=== PATIENT | female | born 1945 | race Caucasian/White ===

== ENCOUNTER → 2016-12-10 | Outpatient (CLI) | payer MEDICARE | END | disposition home or self-care (01) | LOC: GMAB 15:25 | PROVIDERS: ATTEND Family Medicine | DX: D50.9 Iron deficiency anemia, unspecified (principal) ==

== ENCOUNTER → 2017-02-26 | Outpatient (CLI) | payer MEDICARE ==
--- NOTE | 2017-02-27 12:36 | RAD ---
History: Shortness of breath. Chest x-ray: PA and lateral views are compared with 10/2016 study. Cardiac silhouette is within normal limits. Minimal left lower lung atelectasis or scarring. Questioned nodular density right lower lung more likely represents a confluence of overlapping structures. No abnormality is seen on lateral view. No pleural effusion. Diffuse osteopenia with deformity lower thoracic spine that appears remote. IMPRESSION: Minimal left lower lung atelectasis or scarring with suspected patchy density on the right from overlapping structures. Follow-up chest x-ray to confirm this impression is recommended. Electronically signed by: Kiki Watters MD 02/27/2017 12:36 PM CDT
== END ==
LOC: LAB.O 14:55
PROVIDERS: ATTEND Internal Medicine Interventional Cardiology
DX: R06.02 Shortness of breath (principal); E78.2 Mixed hyperlipidemia

== ENCOUNTER → 2017-03-13 | Outpatient (CLI) | payer MEDICARE ==
--- NOTE | 2017-03-13 23:25 | US ---
Procedure: US CAROTID DOPPLER BILATERAL Exam Date: 03/13/2017 Ordering Provider: JUAN RIVERS Clinical Indication: STENOSIS Comparison: 02/04/2014 TECHNIQUE : Real-time cerebrovascular ultrasonography was obtained from sternal notch to the angle of the mandible bilaterally utilizing griggs scale, color flow and spectral Doppler analysis. Systolic velocity ratios were calculated for internal carotid artery to common carotid artery bilaterally. FINDINGS: RIGHT CAROTID BIFURCATION: Mild atherosclerotic plaque. Peak systolic and end-diastolic velocities in the right internal carotid artery are 103 and 21 cm/s. Internal carotid/common carotid ratio is 1.2. Right vertebral flow is antegrade. LEFT CAROTID BIFURCATION: Mild atherosclerotic plaque. Peak systolic and end-diastolic velocities in the left internal carotid artery are 126 and 19 cm/s. Internal carotid/common carotid ratio is 1.3. Left vertebral flow is antegrade. IMPRESSION: 1. Mild atherosclerotic plaque in each carotid bulb and ICA origin. 2. There is no significant stenosis (less than 50%) at either ICA origin. 3. Bilateral antegrade vertebral artery flow. Electronically signed by: Kulidp Gordon MD 03/13/2017 11:25 PM CDT
== END | disposition home or self-care (01) ==
LOC: US 09:55
PROVIDERS: ATTEND Family Medicine
DX: I65.23 Occlusion and stenosis of bilateral carotid arteries (principal)

== ENCOUNTER → 2017-04-04 | Outpatient (CLI) | payer MEDICARE ==
--- NOTE | 2017-04-04 13:29 | MRI ---
Procedure: MR BRAIN WITHOUT IV CONTRAST Exam Date: 04/04/2017 12:00 AM CDT Ordering Provider: JUAN RIVERS Clinical Indication: BENIGN PAROXYMAL VERTIGO Comparison: None Technique: Multiplanar, multisequence images of the brain were obtained without administration of intravenous gadolinium based contrast. Findings: No evidence of diffusion restriction to suggest acute infarct. Scattered areas of T2/Flair signal elevation are seen involving the periventricular and subcortical white matter likely herbicide service sales representative of small vessel occlusive disease. Mild global parenchymal volume loss is present. Ventricles are normal in size morphology without midline shift or mass effect. Basal cisterns are patent. Expected arterial flow-voids are present. There is no extra-axial fluid collection. No acute or chronic intracranial hemorrhage is seen. No evidence of cerebellar tonsillar herniation. Sellar/suprasellar structures are intact. The cervicomedullary junction is within normal limits. Impression: 1. No acute intracranial abnormality. No acute infarction. 2. Mild microvascular ischemic changes.. Electronically signed by: Los Souza MD 04/04/2017 1:28 PM CDT
== END | disposition home or self-care (01) ==
LOC: MRI 10:55
PROVIDERS: ATTEND Family Medicine
DX: H81.10 Benign paroxysmal vertigo, unspecified ear (principal)

== ENCOUNTER → 2017-04-05 | Outpatient (CLI) | payer MEDICARE | END | disposition home or self-care (01) | LOC: GMAB 13:05 | PROVIDERS: ATTEND Family Medicine | DX: D64.9 Anemia, unspecified (principal) ==

== ENCOUNTER → 2017-05-09 | Outpatient (CLI) | payer MEDICARE | END | disposition home or self-care (01) | LOC: GMAB 16:40 | PROVIDERS: ATTEND Family Medicine | DX: R60.0 Localized edema (principal); R06.02 Shortness of breath ==

== ENCOUNTER → 2017-08-14 | Outpatient (CLI) | payer MEDICARE | END | disposition home or self-care (01) | LOC: GMAB 16:55 | PROVIDERS: ATTEND Family Medicine | DX: E03.9 Hypothyroidism, unspecified (principal); M06.9 Rheumatoid arthritis, unspecified ==

== ENCOUNTER → 2017-10-07 | Outpatient (CLI) | payer MEDICARE ==
--- NOTE | 2017-10-09 13:17 | MAM ---
EXAM DESCRIPTION: 3D Screening BILATERAL : Digital Mammography. CLINICAL HISTORY: 71 years Female SCREENING . No complaints. Remote family history of breast cancer. Postmenopausal. No HRT. COMPARISON: 2-D digital screening bilateral study on March 05, 2012. No prior reports available. TECHNIQUE: Bilateral CC and MLO projection full-field images, 3-D tomosynthesis digital mammographic technique. Also bilateral synthesized CC/ MLO full-field images. CAD not utilized. FINDINGS: The breast parenchymal density pattern is: Heterogeneously dense breast tissue, which may obscure small masses. No skin thickening or nipple retraction bilateral axillary lymph nodes. Bilateral solitary microcalcifications have increased in number since the prior study. No focal, stellate mass or density, focal asymmetry , and no suspicious microcalcifications bilaterally. Stable mammograms compared to prior study, taking into account differences in mammographic technique IMPRESSION: BI-RADS CATEGORY: 2 - BENIGN FINDINGS. FOLLOW UP: Routine digital bilateral screening, one year interval from October 2017. Written communication explaining the IMPRESSION and follow-up, will be mailed to the patient and referring health care provider. According to the [employer], yearly mammograms are recommended starting at age 40 and continuing as long as a woman is in good health. Any breast change noted on a breast self-exam should be reported promptly to the patient's healthcare provider. Breast MRI is recommended for women with an approximately 20-25% or greater lifetime risk of breast cancer, including women with a strong family history of breast or ovarian cancer and women who have been treated for Hodgkin's disease. A negative mammographic report should not delay tissue diagnosis in patients with significant clinical history or physical findings. Extremely dense breast tissue limits the sensitivity of digital mammography. Electronically signed by: Capo Machado MD 10/09/2017 1:16 PM [facility]
== END ==
LOC: MAMMO 10:40
PROVIDERS: ATTEND Family Medicine
DX: Z12.31 Encounter for screening mammogram for malignant neoplasm of breast (principal); E53.8 Deficiency of other specified B group vitamins; D50.9 Iron deficiency anemia, unspecified; D64.9 Anemia, unspecified
CPT/HCPCS: 77063; 82728; 83540; 83550; G0202

== ENCOUNTER 2017-10-18 12:34 | Emergency (ER) | payer MEDICARE ==
--- NOTE | 2017-10-18 12:53 | ED.PDOC ---
History of Present Illness - General Chief Complaint: Respiratory Problem Stated Complaint: shortness of breath Time Seen by Provider: 10/18/17 12:52 Source: patient Exam Limitations: no limitations - History of Present Illness Comments: Maggy Bird 71 y/o female stated that she has non productive cough and sob for the last 3 weeks had seen her primary md was prescribed antibiotics but still continue to cough;no fever /no chest pain has home O2 as needed and b-agonist inhaler. Timing/Duration: getting worse, other - 3 weeks Cough Quality/Degree: dry cough Possible Cause: chronic episodes Improving Factors: nothing, eating Associated Symptoms: other - see hpi Respiratory Risk Factors: other - COPD Allergies/Adverse Reactions: Allergies NO KNOWN ALLERGY Allergy (Verified 10/12/16 09:34) Home Medications: Ambulatory Orders Aspirin 81 mg PO AM 01/20/13 Atenolol [Tenormin] 25 mg PO BEDTIME 01/20/13 Atorvastatin Calcium [Lipitor] 10 mg PO AM 01/20/13 Citalopram Hydrobromide [Celexa] 40 mg PO DAILY 01/20/13 HYDROcodone 5MG/APAP 325MG [[place] 5/325] 1 ea PO QID PRN 01/20/13 Levothyroxine Sodium [Synthroid] 0.125 mg PO AM 01/20/13 Metaxalone 800 mg PO TID 01/20/13 Pregabalin [Lyrica] 100 mg PO HS 01/20/13 cloNAZepam [Klonopin] 2 mg PO BID 01/20/13 Atenolol [Tenormin] 50 mg PO QAM 02/28/16 Betamethasone Acetate/Betameth [Celestone Soluspan] 3 mg IM WKLY 02/29/16 Donepezil Hydrochloride [Aricept] 10 mg PO QAM 02/29/16 Losartan Potassium & Hydrochlo [Hyzaar 100-25 mg] 1 tab PO DAILY 02/29/16 Meloxicam [Mobic] 15 mg PO DAILY 02/29/16 Nitroglycerin Patch 0.4 mg/Hr [Nitro-Dur PATCH 0.4 mg/hour] 0.4 mg TOP QD Pantoprazole Tablet [Protonix] 40 mg PO BID 02/29/16 Promethazine Tab [Phenergan Tablet] 25 mg PO Q4HR PRN 02/29/16 Rosuvastatin Calcium [Crestor] 20 mg PO DAILY 02/29/16 amLODIPine BESYLATE [Norvasc] 5 mg PO DAILY 02/29/16 rOPINIRole HCL [Requip] 1 mg PO BEDTIME 02/29/16 Albuterol Sulfate Nebs [Proventil Nebs] 2.5 mg NEB PRN PRN #30 vial 03/02/16 Levofloxacin [Levaquin] 500 mg PO DAILY #7 tab 03/02/16 predniSONE [Prednisone] 10 mg PO DAILY #12 tab 03/02/16 Aricept 10 dose PO DAILY 10/11/16 Donepezil Hydrochloride [Aricept] 10 mg PO DAILY 10/11/16 Ondansetron [Zofran Odt] 8 mg PO Q8HRS PRN #20 tab 10/12/16 Bumetanide [Bumex] 2 mg PO ACBK #14 tab 10/18/17 Cefuroxime Axetil [Ceftin] 250 mg PO BID #14 tablet 10/18/17 Montelukast [Singulair] 10 mg PO BEDTIME #30 tab 10/18/17 predniSONE 10 mg PO BID #14 tab 10/18/17 Review of Systems - Review of Systems Constitutional: States: no symptoms reported EENTM: States: no symptoms reported Respiratory: States: see HPI Cardiology: States: no symptoms reported Gastrointestinal/Abdominal: States: no symptoms reported Genitourinary: States: no symptoms reported Musculoskeletal: States: no symptoms reported Skin: States: no symptoms reported Past Medical History (General) - Patient Medical History Hx Seizures: No Hx Stroke: No Hx Asthma: No Hx of COPD: No Hx Cardiac Disorders: Yes - hypercholesterolemia Hx Congestive Heart Failure: No Hx Pacemaker: No Hx Hypertension: Yes Hx Thyroid Disease: Yes Hx Diabetes: No Hx Gastroesophageal Reflux: Yes Hx MRSA: Yes - 2015 Nasal Swab Surgical History: tonsillectomy, other - left hip arthroplasty,toe,bladder lift - Vaccination History Hx Tetanus, Diphtheria Vaccination: No Hx Influenza Vaccination: Yes - 2016 Hx Pneumococcal Vaccination: Yes - Social History Hx Tobacco Use: No Hx Alcohol Use: No Hx Substance Use: No Hx Physical Abuse: No Hx Emotional Abuse: No Family Medical History - Family History Mother Family History: Unknown Living Status: Hx Family Hypertension: Yes - mom Hx Cardiac Disease: Yes - dad Hx Family Diabetes: Yes - mom Physical Exam - Physical Exam General Appearance: Alert, Comfortable, No apparent distress Eye Exam: bilateral normal ENT Exam: normal ENT inspection, hearing grossly normal, pharynx normal Neck: non-tender, full range of motion, supple, trachea midline Respiratory: normal breath sounds, no respiratory distress, decreased breath sounds, other - speak in full sentences Cardiovascular/Chest: normal peripheral pulses, regular rate, rhythm, no murmur Gastrointestinal/Abdominal: normal bowel sounds, non tender, soft, no organomegaly Extremity: no pedal edema, no calf tenderness Neurologic: no motor/sensory deficits, alert, normal mood/affect, oriented x 3 Skin Exam: normal color, warm/dry Lymphatic: no adenopathy Progress - Progress Progress: 10/18/17 16:16 Last Vital Signs Temp 98.2 F 10/18/17 12:51 Pulse 62 10/18/17 15:54 Resp 20 10/18/17 15:54 BP 192/72 10/18/17 15:54 Pulse Ox 95 10/18/17 15:54 - Results/Orders Results/Orders: Laboratory Tests 10/18/17 10/18/17 10/18/17 13:23 13:43 13:43 WBC 11.1 H RBC 4.00 L Hgb 11.6 L Hct 34.5 L MCV 86.2 MCH 29.0 MCHC 33.7 RDW 14.3 Plt Count 187 MPV 9.5 Absolute Neuts (auto) 8.70 H Absolute Lymphs (auto) 1.70 Absolute Monos (auto) 0.50 Absolute Eos (auto) 0.10 Absolute Basos (auto) 0.10 Neutrophils % 78.4 H Lymphocytes % 14.9 L Monocytes % 4.6 Eosinophils % 1.3 Basophils % 0.8 pCO2 49 H pO2 57 L HCO3 28.0 ABG pH 7.370 ABG O2 Saturation 90.3 L ABG Base Excess 2.6 ABG Deoxyhemoglobin 9.4 H Oxyhemoglobin % 87.6 L Carboxyhemoglobin % 1.4 Methemoglobin % Sat 1.6 H Calc Total Hemoglobin 11.2 L Sodium 141 Potassium 3.8 Chloride 106 Carbon Dioxide 30 Anion Gap 8.8 L BUN 12 Creatinine 0.84 BUN/Creatinine Ratio 14.3 Random Glucose 103 Serum Osmolality 281.3 Calcium 9.3 Total Bilirubin 0.5 AST 29 ALT 21 Alkaline Phosphatase 125 H Serum Total Protein 6.8 Albumin 3.7 Globulin 3.1 Albumin/Globulin Ratio 1.2 - EKG/XRAY/CT XRAY: chest - pulmanary vascular congestion Departure - Departure Clinical Impression: COPD with hypoxia CHF (congestive heart failure) Qualifiers: Congestive heart failure type: unspecified congestive heart failure type Congestive heart failure chronicity: unspecified congestive heart failure chronicity Qualified Code(s): I50.9 - Heart failure, unspecified Time of Disposition: 16:19 Disposition: Discharge to Home or Self Care Condition: Good Departure Forms: ED Discharge - Pt. Copy, Patient Portal Self Enrollment Instructions: DI for Chronic Obstructive Pulmonary Disease Referrals: [place] MD [Primary Care Provider] - 1-2 Weeks Prescriptions: Bumetanide [Bumex] 2 mg PO ACBK #14 tab Cefuroxime Axetil [Ceftin] 250 mg PO BID #14 tablet Montelukast [Singulair] 10 mg PO BEDTIME #30 tab predniSONE 10 mg PO BID #14 tab Home Medications: Ambulatory Orders Aspirin 81 mg PO AM 01/20/13 Atenolol [Tenormin] 25 mg PO BEDTIME 01/20/13 Atorvastatin Calcium [Lipitor] 10 mg PO AM 01/20/13 Citalopram Hydrobromide [Celexa] 40 mg PO DAILY 01/20/13 HYDROcodone 5MG/APAP 325MG [[place] 5/325] 1 ea PO QID PRN 01/20/13 Levothyroxine Sodium [Synthroid] 0.125 mg PO AM 01/20/13 Metaxalone 800 mg PO TID 01/20/13 Pregabalin [Lyrica] 100 mg PO HS 01/20/13 cloNAZepam [Klonopin] 2 mg PO BID 01/20/13 Atenolol [Tenormin] 50 mg PO QAM 02/28/16 Betamethasone Acetate/Betameth [Celestone Soluspan] 3 mg IM WKLY 02/29/16 Donepezil Hydrochloride [Aricept] 10 mg PO QAM 02/29/16 Losartan Potassium & Hydrochlo [Hyzaar 100-25 mg] 1 tab PO DAILY 02/29/16 Meloxicam [Mobic] 15 mg PO DAILY 02/29/16 Nitroglycerin Patch 0.4 mg/Hr [Nitro-Dur PATCH 0.4 mg/hour] 0.4 mg TOP QD Pantoprazole Tablet [Protonix] 40 mg PO BID 02/29/16 Promethazine Tab [Phenergan Tablet] 25 mg PO Q4HR PRN 02/29/16 Rosuvastatin Calcium [Crestor] 20 mg PO DAILY 02/29/16 amLODIPine BESYLATE [Norvasc] 5 mg PO DAILY 02/29/16 rOPINIRole HCL [Requip] 1 mg PO BEDTIME 02/29/16 Albuterol Sulfate Nebs [Proventil Nebs] 2.5 mg NEB PRN PRN #30 vial 03/02/16 Levofloxacin [Levaquin] 500 mg PO DAILY #7 tab 03/02/16 predniSONE [Prednisone] 10 mg PO DAILY #12 tab 03/02/16 Aricept 10 dose PO DAILY 10/11/16 Donepezil Hydrochloride [Aricept] 10 mg PO DAILY 10/11/16 Ondansetron [Zofran Odt] 8 mg PO Q8HRS PRN #20 tab 10/12/16 Bumetanide [Bumex] 2 mg PO ACBK #14 tab 10/18/17 Cefuroxime Axetil [Ceftin] 250 mg PO BID #14 tablet 10/18/17 Montelukast [Singulair] 10 mg PO BEDTIME #30 tab 10/18/17 predniSONE 10 mg PO BID #14 tab 10/18/17 Additional Instructions: Return to emergency room as needed;Need to wear home oxygen all day until better ;Follow up with primary Md 10/21/2017;Lc to use nebulizer treatment every 6 hours during waking hours for cough/wheezing shortness of breath until better
[2017-10-18 12:55] VITALS: TEMP 98.2
--- NOTE | 2017-10-18 14:02 | RAD ---
Chest two views INDICATION: Cough COMPARISON: February 2017 IMPRESSION: There is vascular congestion. Heart size is borderline. Mild bibasilar atelectasis. Mild linear interstitial edema or thickening in the bases. Prominent degenerative scoliosis left convex upper lumbar region partially imaged. There is a new small peripheral density in the left lateral lung base likely scarring or atelectasis. Prominent osteoarthrosis of the shoulders. Scattered degenerative disc disease and spondylosis throughout the visualized thoracolumbar spine. Electronically signed by: Albino Montana MD 10/18/2017 2:01 PM [facility]
[2017-10-18] MEDS ORDERED: IPRATROPIUM/ALBUTEROL 3 ML VIAL NEB ONE (15:22)
[2017-10-18] MEDS ORDERED: methylPREDNISolone SODIUM SUC 125 MG/2 ML VIAL IV ONE (15:22)
[2017-10-18] MEDS ORDERED: BUMETANIDE 0.25 MG/ML VIAL IV ONE (15:22)
[2017-10-18] MEDS ORDERED: cefTRIAXone SODIUM 1 GM in SODIUM CHL 0.9% 50ML MIN-BAG+ 50 ML IVPB ONE (15:23)
[2017-10-18] MEDS ORDERED: SODIUM CHL 0.9% 50ML MIN-BAG+ 50 ML IVPB ONE (15:37)
[2017-10-18] MEDS ORDERED: cefTRIAXone SODIUM 1 GM VIAL ONE (15:37)
[2017-10-18 17:51] VITALS: BP 162/72; O2SAT 94
== END 2017-10-18 17:50 | disposition home or self-care (01) ==
LOC: ER 12:34
DX: J44.9 Chronic obstructive pulmonary disease, unspecified (principal); R09.02 Hypoxemia; I11.0 Hypertensive heart disease with heart failure; I50.9 Heart failure, unspecified; E07.9 Disorder of thyroid, unspecified; E78.00 Pure hypercholesterolemia, unspecified
CPT/HCPCS: 36415; 36600; 71020; 80053; 82803; 82805; 85025; 94640; J0696; J2930; J3490; J7050; J7620

== ENCOUNTER → 2018-03-05 | Outpatient (CLI) | payer MEDICARE ==
[~2018-03-05] MED LIST: ALBUTEROL SULFATE 2.5 MG/3 ML VIAL NEB ONE
[2018-03-05 10:46] VITALS: O2SAT 94
== END ==
LOC: RESP 10:03
PROVIDERS: ATTEND Family Medicine
DX: J44.1 Chronic obstructive pulmonary disease with (acute) exacerbation (principal)
CPT/HCPCS: 94010; 94060; 94640; J7611

== ENCOUNTER → 2018-03-25 | Outpatient (CLI) | payer MEDICARE | LOC: LAB 03-17 12:06 | PROVIDERS: ATTEND Internal Medicine Infectious Disease | DX: R53.81 Other malaise (principal); N39.0 Urinary tract infection, site not specified ==

== ENCOUNTER 2018-06-30 10:26 | Emergency (ER) | payer MEDICARE ==
[2018-06-30 10:40] VITALS: TEMP 98.6
[2018-06-30] MEDS ORDERED: ACETAMINOPHEN-CAFF-BUTALBITAL 1 EA TAB PO ONE (10:49)
--- NOTE | 2018-06-30 12:01 | ED.PDOC ---
History of Present Illness - General Chief Complaint: Upper Extremity Injury Stated Complaint: right arm pain Time Seen by Provider: 06/30/18 10:41 Source: patient Exam Limitations: no limitations - History of Present Illness Initial Comments: the patient is a 72-year-old female with long-standing history of multiple medical problems presenting secondary to pain in her right shoulder. The pain has been present for more than a week. Probably not coincidentally the patient ran out of her hydrocodone around that time as well and has not been able to get them refilled due to her prescribing physician being out of the country currently. No fevers or new cough. No shortness of breath. No chest pain. The shoulder itself is diffusely uncomfortable to palpation surrounding the entirety of the shoulder. palpation and movement does reproduce the pain in its entirety. She does have palpable AC arthritis. she does have pain with both active and passive range of motion. No pain in the elbow and wrist. No neurological symptoms. No crepitus. No deformity otherwise. Timing/Duration: unsure Severity: moderate Improving Factors: nothing Worsening Factors: movement Associated Symptoms: denies symptoms Allergies/Adverse Reactions: Allergies NO KNOWN ALLERGY Allergy (Verified 10/12/16 09:34) Home Medications: Ambulatory Orders Aspirin 81 mg PO AM 01/20/13 Atenolol [Tenormin] 25 mg PO BEDTIME 01/20/13 Atorvastatin Calcium [Lipitor] 10 mg PO AM 01/20/13 Citalopram Hydrobromide [Celexa] 40 mg PO DAILY 01/20/13 HYDROcodone 5MG/APAP 325MG [[place] 5/325] 1 ea PO QID PRN 01/20/13 Levothyroxine Sodium [Synthroid] 0.125 mg PO AM 01/20/13 Metaxalone 800 mg PO TID 01/20/13 Pregabalin [Lyrica] 100 mg PO HS 01/20/13 cloNAZepam [Klonopin] 2 mg PO BID 01/20/13 Atenolol [Tenormin] 50 mg PO QAM 02/28/16 Betamethasone Acetate/Betameth [Celestone Soluspan] 3 mg IM WKLY 02/29/16 Donepezil Hydrochloride [Aricept] 10 mg PO QAM 02/29/16 Losartan Potassium & Hydrochlo [Hyzaar 100-25 mg] 1 tab PO DAILY 02/29/16 Meloxicam [Mobic] 15 mg PO DAILY 02/29/16 Nitroglycerin Patch 0.4 mg/Hr [Nitro-Dur PATCH 0.4 mg/hour] 0.4 mg TOP QD Pantoprazole Tablet [Protonix] 40 mg PO BID 02/29/16 Promethazine Tab [Phenergan Tablet] 25 mg PO Q4HR PRN 02/29/16 Rosuvastatin Calcium [Crestor] 20 mg PO DAILY 02/29/16 amLODIPine BESYLATE [Norvasc] 5 mg PO DAILY 02/29/16 rOPINIRole HCL [Requip] 1 mg PO BEDTIME 02/29/16 Albuterol Sulfate Nebs [Proventil Nebs] 2.5 mg NEB PRN PRN #30 vial 03/02/16 Levofloxacin [Levaquin] 500 mg PO DAILY #7 tab 03/02/16 predniSONE [Prednisone] 10 mg PO DAILY #12 tab 03/02/16 Aricept 10 dose PO DAILY 10/11/16 Donepezil Hydrochloride [Aricept] 10 mg PO DAILY 10/11/16 Ondansetron [Zofran Odt] 8 mg PO Q8HRS PRN #20 tab 10/12/16 Bumetanide [Bumex] 2 mg PO ACBK #14 tab 10/18/17 Cefuroxime Axetil [Ceftin] 250 mg PO BID #14 tablet 10/18/17 Montelukast [Singulair] 10 mg PO BEDTIME #30 tab 10/18/17 predniSONE 10 mg PO BID #14 tab 10/18/17 Aupnqlthpgfrq-Dhap-Jlswdykvin [Fioricet] 1 ea PO Q8H PRN #21 tab 06/30/18 predniSONE [Prednisone] 20 mg PO DAILY #5 tab 06/30/18 Review of Systems - Review of Systems Constitutional: States: no symptoms reported EENTM: States: no symptoms reported Respiratory: States: no symptoms reported Cardiology: States: no symptoms reported Gastrointestinal/Abdominal: States: no symptoms reported Genitourinary: States: no symptoms reported Musculoskeletal: States: see HPI Skin: States: no symptoms reported Neurological: States: no symptoms reported Endocrine: States: no symptoms reported All other Systems: No Change from Baseline Past Medical History (General) - Patient Medical History Hx Seizures: No Hx Stroke: No Hx Asthma: No Hx of COPD: Yes Hx Cardiac Disorders: Yes - hypercholesterolemia Hx Congestive Heart Failure: No Hx Pacemaker: No Hx Hypertension: Yes Hx Thyroid Disease: Yes Hx Diabetes: No Hx Gastroesophageal Reflux: Yes Hx MRSA: Yes - 2016 Nasal Swab - Vaccination History Hx Tetanus, Diphtheria Vaccination: No Hx Influenza Vaccination: Yes - 2016 Hx Pneumococcal Vaccination: Yes - Social History Hx Tobacco Use: Yes Hx Alcohol Use: No Hx Substance Use: No Hx Physical Abuse: No Hx Emotional Abuse: No Family Medical History - Family History Mother Family History: Unknown Living Status: Hx Family Hypertension: Yes - mom Hx Cardiac Disease: Yes - dad Hx Family Diabetes: Yes - mom Physical Exam - Physical Exam General Appearance: Alert, No apparent distress Eye Exam: bilateral normal Ears, Nose, Throat: hearing grossly normal, normal ENT inspection Neck: full range of motion, supple Respiratory: other - chronic decreased breath sounds bilaterally. Mild scattered wheezes. This is apparently her baseline status. Cardiovascular/Chest: normal peripheral pulses, no edema, other - regular rate to mild bradycardia. Peripheral Pulses: radial,right: 2+, radial,left: 2+ Gastrointestinal/Abdominal: non tender, soft Rectal Exam: deferred Back Exam: normal inspection, no CVA tenderness Extremity: normal range of motion, non-tender, normal inspection, no pedal edema , normal capillary refill Neurologic: continuous improvement facilitator II-XII nml as tested, alert, normal mood/affect, oriented x 3 Skin Exam: normal color Comments: Vital Signs - 24 hr 06/30/18 06/30/18 06/30/18 10:35 10:42 11:02 Temperature 98.6 F Pulse Rate [ 54 L 50 L left brachial] Respiratory 16 16 16 Rate Blood Pressure 173/101 127/60 [left brachial] O2 Sat by Pulse 92 L 96 Oximetry Progress - Progress Progress: 06/30/18 12:02 the patient is a 72-year-old female presenting with right shoulder pain. X-ray of the right shoulder shows significant osteoarthritis but no evidence of dislocation or fracture. Final read is pending due to computer complications. The patient be placed on prednisone for 5 days to help reduce inflammation and she'll also be written for some Fioricet for as needed use. She obviously needs to keep follow-up with her chronic pain management doctor when he gets back into town. mild opiate withdrawal may be contributing to her symptoms. Additionally the patient does desaturate mildly when she lies back and falls asleep down to around 88% here. It may be worthwhile for her and her primary care doctor to discuss setting up a overnight sleep study to see if she has significant desaturations overnight that would require CPAP or possibly supplemental oxygen. ER warnings were given for recent worsening. She does need to move the shoulder and do stretching exercises. topical heat may prove beneficial symptomatically. Follow-up with primary care doctor later this week. Departure - Departure Clinical Impression: Osteoarthritis, localized, shoulder Qualifiers: Laterality: right Qualified Code(s): M19.011 - Primary osteoarthritis, right shoulder Disposition: Discharge to Home or Self Care Condition: Fair Departure Forms: ED Discharge - Pt. Copy, Patient Portal Self Enrollment Diet: regular diet Activity: increase activity as tolerated Prescriptions: Hxfksssribhsn-Wukj-Heufublbmk [Fioricet] 1 ea PO Q8H PRN #21 tab PRN Reason: Pain predniSONE [Prednisone] 20 mg PO DAILY #5 tab Home Medications: Ambulatory Orders Aspirin 81 mg PO AM 01/20/13 Atenolol [Tenormin] 25 mg PO BEDTIME 01/20/13 Atorvastatin Calcium [Lipitor] 10 mg PO AM 01/20/13 Citalopram Hydrobromide [Celexa] 40 mg PO DAILY 01/20/13 HYDROcodone 5MG/APAP 325MG [[place] 5/325] 1 ea PO QID PRN 01/20/13 Levothyroxine Sodium [Synthroid] 0.125 mg PO AM 01/20/13 Metaxalone 800 mg PO TID 01/20/13 Pregabalin [Lyrica] 100 mg PO HS 01/20/13 cloNAZepam [Klonopin] 2 mg PO BID 01/20/13 Atenolol [Tenormin] 50 mg PO QAM 02/28/16 Betamethasone Acetate/Betameth [Celestone Soluspan] 3 mg IM WKLY 02/29/16 Donepezil Hydrochloride [Aricept] 10 mg PO QAM 02/29/16 Losartan Potassium & Hydrochlo [Hyzaar 100-25 mg] 1 tab PO DAILY 02/29/16 Meloxicam [Mobic] 15 mg PO DAILY 02/29/16 Nitroglycerin Patch 0.4 mg/Hr [Nitro-Dur PATCH 0.4 mg/hour] 0.4 mg TOP QD Pantoprazole Tablet [Protonix] 40 mg PO BID 02/29/16 Promethazine Tab [Phenergan Tablet] 25 mg PO Q4HR PRN 02/29/16 Rosuvastatin Calcium [Crestor] 20 mg PO DAILY 02/29/16 amLODIPine BESYLATE [Norvasc] 5 mg PO DAILY 02/29/16 rOPINIRole HCL [Requip] 1 mg PO BEDTIME 02/29/16 Albuterol Sulfate Nebs [Proventil Nebs] 2.5 mg NEB PRN PRN #30 vial 03/02/16 Levofloxacin [Levaquin] 500 mg PO DAILY #7 tab 03/02/16 predniSONE [Prednisone] 10 mg PO DAILY #12 tab 03/02/16 Aricept 10 dose PO DAILY 10/11/16 Donepezil Hydrochloride [Aricept] 10 mg PO DAILY 10/11/16 Ondansetron [Zofran Odt] 8 mg PO Q8HRS PRN #20 tab 10/12/16 Bumetanide [Bumex] 2 mg PO ACBK #14 tab 10/18/17 Cefuroxime Axetil [Ceftin] 250 mg PO BID #14 tablet 10/18/17 Montelukast [Singulair] 10 mg PO BEDTIME #30 tab 10/18/17 predniSONE 10 mg PO BID #14 tab 10/18/17 Haxobcrpszpji-Atso-Nazzsqvgaj [Fioricet] 1 ea PO Q8H PRN #21 tab 06/30/18 predniSONE [Prednisone] 20 mg PO DAILY #5 tab 06/30/18 Additional Instructions: the patient is a 72-year-old female presenting with right shoulder pain. X-ray of the right shoulder shows significant osteoarthritis but no evidence of dislocation or fracture. Final read is pending due to computer complications. The patient be placed on prednisone for 5 days to help reduce inflammation and she'll also be written for some Fioricet for as needed use. She obviously needs to keep follow-up with her chronic pain management doctor when he gets back into town. mild opiate withdrawal may be contributing to her symptoms. Additionally the patient does desaturate mildly when she lies back and falls asleep down to around 88% here. It may be worthwhile for her and her primary care doctor to discuss setting up a overnight sleep study to see if she has significant desaturations overnight that would require CPAP or possibly supplemental oxygen. ER warnings were given for recent worsening. She does need to move the shoulder and do stretching exercises. topical heat may prove beneficial symptomatically. Follow-up with primary care doctor later this week. blood pressure is moderately elevated here, concordant with pain. This should be followed with her primary care doctor as well.
[2018-06-30 12:06] VITALS: BP 181/64
[2018-06-30] MEDS ORDERED: KETOROLAC TROMETHAMINE INJ 30 MG/ML VIAL ONE (12:07)
[2018-06-30] MEDS ORDERED: KETOROLAC TROMETHAMINE INJ 30 MG/ML VIAL IM ONE (12:08)
[2018-06-30 12:10] VITALS: O2SAT 96
--- NOTE | 2018-06-30 12:56 | RAD ---
EXAM DESCRIPTION: Radiographs of the right Shoulder: CLINICAL HISTORY: RIGHT SHOULDER PAIN 1 week COMPARISON: None TECHNIQUE: AP internal external rotation images. Right shoulder. FINDINGS: No fracture right shoulder. Decreased bone density. AC joint minimal narrowing with marginal spurs. Glenohumeral joint significant narrowing especially inferior joint space with hypertrophic bone formation on the glenoid and the humeral head. Calcifications in the rotator interval. tab IMPRESSION: Significant narrowing of the glenohumeral joint especially inferiorly with marginal spurs on the humeral head and glenoid. Calcifications in the region of the supraspinatus tendon outlet. No fractures. Electronically signed by: Capo Machado MD 06/30/2018 12:53 PM CDT
== END 2018-06-30 12:14 | disposition home or self-care (01) ==
LOC: ER 10:26
DX: M19.011 Primary osteoarthritis, right shoulder (principal); J44.9 Chronic obstructive pulmonary disease, unspecified; E78.00 Pure hypercholesterolemia, unspecified; I10 Essential (primary) hypertension; E07.9 Disorder of thyroid, unspecified; K21.9 Gastro-esophageal reflux disease without esophagitis; Z87.891 Personal history of nicotine dependence; Z79.82 Long term (current) use of aspirin; Z79.891 Long term (current) use of opiate analgesic; Z79.899 Other long term (current) drug therapy
CPT/HCPCS: 73030; J1885

== ENCOUNTER → 2018-12-01 | Outpatient (CLI) | payer MEDICARE ==
--- NOTE | 2018-12-01 17:15 | MRI ---
EXAM DESCRIPTION: Lumbar Spine w/o Contrast : Magnetic Resonance Imaging. CLINICAL HISTORY: INTERVERTEBRAL DISC DISORDERS W/ RADICULOPATHY COMPARISON: Mild scan lumbar spine without contrast 09/07/2016. MRI scan cervical spine on this visit. TECHNIQUE: Multiplanar, multiple standard sequences, non contrast MRI, lumbar spine. FINDINGS: L5-S1: Marked disc space loss. Modic type III endplate reactive changes. Anterior disc is desiccated with bulging and anterior endplate ridging. Schmorl's nodes in the central L5 endplate and the anterior S1 endplate. Disc osteophyte bulge into the midline canal and to the left of midline 4 mm, also bulging above the disc space. AP canal diameter 10 mm. Disc osteophyte complex bulge significantly to the left encroaching on the left foramen which is stenotic. Disc bulging below the endplate minimal narrowing of the left subarticular recess. Minimal disc bulge into the right foramen is moderately narrowed. Facet joint arthrosis and hypertrophy and ligament hypertrophy more on the left. Progressed since the prior study. Atrophy in the left psoas muscle. L4-5: Disc desiccation with central calcification or gas formation. Modic type II endplate changes to the left of midline with Schmorl's nodes superior and inferior. Minimal disc space loss of the right of midline. 2 mm grade 1 anterolisthesis. Posterior central disc bulge 5 mm also bulging above the L4 endplate. Hypertrophic and degenerated left facet joint more than right with compression of the thecal sac. AP canal diameter 6 mm. Mild narrowing of the right foramen and disc osteophyte complex encroaching on the left foramen which is stenotic. Atrophy in the left psoas muscle. Deformity and possible spondylolysis left L5 pars. Minimal disc bulge abutting both recesses. Progressed since the prior study. L3-4: Disc desiccation and moderate disc space loss: Anterior disc bulge and endplate ridging. Superior and inferior Schmorl's nodes. Trace retrolisthesis. Posterior broad-based disc osteophyte bulge more to the right of midline and inferior to the disc space encroaching on the right subarticular recess. AP canal diameter 5 mm to the right of midline. Disc osteophyte bulge also lateral and into the right foramen with mild to moderate narrowing abutting the exiting nerve root. Mild narrowing left foramen. Bilateral facet arthrosis and flavum ligament hypertrophy. Stable since the prior study. L2-3: Disc desiccation minimal disc space narrowing to the left moderate on the right. Modic type II endplate reactive changes. Posterior midline disc osteophyte bulge with AP canal diameter 9 mm. Bilateral narrowing of the lateral recesses. Minimal disc bulge into the left foramen with mild narrowing. Disc osteophyte bulge into the right foramen moderately narrowed abutting the exiting L2 nerve. Facet joint arthrosis and ligament hypertrophy more on the right. Stable since the prior study. L1-2: Disc desiccation moderate to severe disc space loss more in the midline into the right of midline. Posterior disc osteophyte bulge is broad-based and the conus terminates just above this level. Facet arthrosis and ligament hypertrophy impressing on the posterior thecal sac. AP canal diameter 8.5 mm. Left foramen patent. Disc osteophyte bulge and facet bulge on the right foramen with mild stenosis. This has progressed since the prior study. Flavum ligament hypertrophy and facet arthrosis more on the right than the left. T12-L1: Disc desiccation with disc space loss and endplate erosion and Modic type II endplate changes more right than left. Schmorl's nodes more to the right of midline. Posterior broad-based disc spur complex 4 mm bulge abutting the thecal sac. Also extending below the endplate narrowing the bilateral subarticular recesses. Hypertrophic right facet joint with arthrosis more than the left. Also anterior endplate ridging and disc bulging. AP canal diameter 9 mm. Moderate narrowing of the right foramen and mild narrowing of the left foramen. This is stable since the prior study. L1-L4 levoscoliosis stable. Paravertebral soft tissues no muscle atrophy also paraspinal more on the left.. Normal marrow signal in the remaining vertebral bodies and the posterior elements. Vertebral bodies are not compressed at any level. IMPRESSION: 1. Multilevel spondylosis, disc space narrowing, disc bulging, endplate Schmorl's nodes and erosion, hypertrophy of the flavum ligaments and hypertrophy/arthrosis of the facet joints. Canal narrowing/stenosis, and foraminal narrowing/stenosis. 2. Left foraminal stenosis at L5-S1 with impingement of the left L5 nerve. This has progressed since the prior study. Disc osteophyte complex bulging into the left canal shows less mass effect since the prior study. Borderline mild canal stenosis. Narrowing of the left subarticular recess. 3. Severe central canal stenosis at L4-5 multifactorial with left foraminal stenosis. Narrowing of the bilateral subarticular recesses. Slightly progressed since the prior study. Again seen is spondylolysis of the left L4 pars interarticularis. 4. Posterior right L3-4 disc osteophyte complex encroachment with severe right central canal stenosis and impingement of the right subarticular recess. This has progressed since the prior study. Electronically signed by: Capo Machado MD 12/01/2018 5:[address] [facility]
--- NOTE | 2018-12-01 19:46 | MRI ---
EXAM DESCRIPTION: Cervical Spine: MRI. CLINICAL HISTORY: 73 years Female CERVICAL DISC DISORDER AT c5-c6 LEVEL COMPARISON: MR lumbar spine on this same visit. TECHNIQUE: Multiplanar, high-field MRI, multiple sequences, non-contrast Cervical spine. FINDINGS: C3-4: Moderate disc space loss with disc desiccation. Anterior bulging and endplate ridging. Posterior midline bulge almost touching the cord. Bilateral uncinate spurs and minimal disc bulging. Moderate canal narrowing. Bilateral neural foraminal stenosis. Minimal arthrosis of the left facet joint. C4-5: Disc desiccation with moderate disc space loss. Anterior bulging and endplate ridging. Posterior midline disc osteophyte bulge impressing on the ventral cord with mild central canal stenosis. Protruding disc contains hyperintense T2 signal which is an annular fissure. Bilateral uncinate spurs and bilateral neural foraminal stenosis. C5-6: Disc desiccation and moderate disc space loss. Anterior disc bulging and endplate ridging. Posterior broad-based disc osteophyte bulge abutting the cord. Minimal ligament hypertrophy borderline mild central canal stenosis. Minimal arthrosis of the left facet. Bilateral uncinate spurs and disc bulging resulting in bilateral neural foraminal stenosis. C6-7: Disc desiccation and minimal to moderate disc space loss. Minimal anterior bulging. Posterior disc osteophyte bulge to the left of midline abutting the cord. Moderate to severe canal narrowing. Moderate to severe right neural narrowing by uncinate spur and disc bulge. Left neural foraminal stenosis by uncinate spurs. C7-T1: Disc desiccation with no significant bulging. Posterior flavum ligament hypertrophy and bilateral facet arthrosis with mild canal narrowing. Normal signal in the remaining discs with no bulging. Disc spaces preserved. Canal and neural foramina are patent. Facet joints and ligaments are unremarkable. Spinal alignment mild kyphosis C2-C4.. No cord compression or cord edema. Atlantoaxial joint minimal hypertrophy.. Base of the cerebellar tonsils is above the foramen magnum. Paravertebral soft tissues unremarkable.. Vertebral bodies are not compressed at any level. Normal marrow signal in the remaining vertebral bodies and the posterior elements. IMPRESSION: 1. Multiple levels of unilateral or bilateral neural foraminal stenosis or significant narrowing secondary to bulging disc and uncinate spurs. This can be seen from the C3-4 level that of the C6-7 level. 2. Protruding midline C4-5 disc with annular fissure impressing on the cord and mild central canal stenosis. Multifactorial borderline mild central canal stenosis at C5-6. Electronically signed by: Capo Machado MD 12/01/2018 7:45 PM [facility]
== END ==
LOC: MRI 13:00
PROVIDERS: ATTEND Psychiatry & Neurology Neurology
DX: M50.122 Cervical disc disorder at C5-C6 level with radiculopathy (principal); M51.16 Intervertebral disc disorders with radiculopathy, lumbar region; M48.062 Spinal stenosis, lumbar region with neurogenic claudication; M47.896 Other spondylosis, lumbar region; M51.46 Schmorl's nodes, lumbar region; M25.78 Osteophyte, vertebrae

== ENCOUNTER 2019-05-10 13:46 | Emergency (ER) | payer MEDICARE ==
[2019-05-10] MEDS ORDERED: SODIUM CHLORIDE 0.9% 1000ML 1,000 ML IVS ONE (14:19)
--- NOTE | 2019-05-10 14:25 | ED.PDOC ---
History of Present Illness - General Chief Complaint: Cardiovascular Problem Stated Complaint: N/V, confusion Time Seen by Provider: 05/10/19 14:11 Source: patient, family - History of Present Illness Initial Comments: Pt has had N/V x 1 week. Was placed in hospital at [facility] and was released on Saturday after two day stay. Pt continues having vomiting and reports diarrhea as well. Today pt started getting confused per daughter. Also, pt was going to have an ablation done for her A.Fib last week before she became ill at [facility] with Dr Herrmann. Severity: moderate Improving Factors: nothing Worsening Factors: nothing Associated Symptoms: nausea/vomiting, weakness Allergies/Adverse Reactions: Allergies NO KNOWN ALLERGY Allergy (Verified 10/12/16 09:34) Home Medications: Ambulatory Orders Citalopram Hydrobromide [Celexa] 20 mg PO DAILY 01/20/13 Nitroglycerin Patch 0.4 mg/Hr [Nitro-Dur PATCH 0.4 mg/hour] 0.4 mg TOP QD 02/29/16 Pantoprazole Tablet [Protonix] 40 mg PO BID 02/29/16 Albuterol Sulfate Nebs [Proventil Nebs] 2.5 mg NEB PRN PRN #30 vial 03/02/16 Montelukast [Singulair] 10 mg PO BEDTIME #30 tab 10/18/17 Amiodarone HCl 200 mg PO DAILY 05/10/19 Apixaban [Eliquis] 5 mg PO DAILY 05/10/19 Celecoxib [Celebrex] 200 mg PO DAILY 05/10/19 Citalopram Hydrobromide [CeleXA] 20 mg PO DAILY 05/10/19 Cyclobenzaprine Tab (ER Disp) [Flexeril Tab (ER Dispense)] 1 - 2 tablet PO BEDTIME 05/10/19 Diltiazem HCl Extended Release [Diltiazem HCl ER] 120 mg PO DAILY 05/10/19 Furosemide [Lasix] 40 mg PO DAILY PRN 05/10/19 Gabapentin 300 mg PO TID 05/10/19 Levothyroxine Sodium [Synthroid] 0.15 mg PO DAILY 05/10/19 Metoprolol Succinate [Metoprolol Succinate ER] 25 mg PO DAILY #30 tab 05/10/19 Pramipexole Dihydrochloride [Pramipexole Dihydrochlori] 2 mg PO BEDTIME 05/10/19 Prednisone 50 mg PO DAILY 05/10/19 Promethazine Tab [Phenergan Tablet] 25 mg PO .Q4H PRN #20 tab 05/10/19 Review of Systems - Review of Systems Constitutional: States: weakness EENTM: States: no symptoms reported Respiratory: States: no symptoms reported Cardiology: States: no symptoms reported Gastrointestinal/Abdominal: States: abdominal pain, diarrhea, nausea, vomiting Genitourinary: States: no symptoms reported Musculoskeletal: States: no symptoms reported Skin: States: no symptoms reported Neurological: States: no symptoms reported Past Medical History (General) - Patient Medical History Hx Seizures: No Hx Stroke: No Hx Asthma: No Hx of COPD: Yes Hx Cardiac Disorders: Yes - hypercholesterolemia Hx Congestive Heart Failure: No Hx Pacemaker: No Hx Hypertension: Yes Hx Thyroid Disease: Yes Hx Diabetes: No Hx Gastroesophageal Reflux: Yes Hx MRSA: Yes - 2015 Nasal Swab - Vaccination History Hx Tetanus, Diphtheria Vaccination: No Hx Influenza Vaccination: Yes - 2016 Hx Pneumococcal Vaccination: Yes - Social History Hx Tobacco Use: Yes Hx Alcohol Use: No Hx Substance Use: No Hx Physical Abuse: No Hx Emotional Abuse: No Family Medical History - Family History Mother Family History: Unknown Living Status: Hx Family Hypertension: Yes - mom Hx Cardiac Disease: Yes - dad Hx Family Diabetes: Yes - mom Physical Exam - Physical Exam General Appearance: Alert, No apparent distress Eye Exam: bilateral normal Ears, Nose, Throat: other - dry oral mucosa Neck: non-tender, full range of motion Respiratory: chest non-tender, lungs clear, normal breath sounds Cardiovascular/Chest: tachycardia, irregularly irregular Peripheral Pulses: radial,right: 2+, radial,left: 2+ Gastrointestinal/Abdominal: normal bowel sounds, non tender Extremity: normal range of motion, non-tender, normal inspection, no pedal edema Neurologic: alert Skin Exam: normal color, warm/dry Lymphatic: no adenopathy Progress - EKG/XRAY/CT EKG: Atrial, Flutter, nonspecific ST T wave Chg Comments: alvin 146, QRS 76, QTc 476 Departure - Departure Clinical Impression: Atrial flutter, chronic, Atrial flutter with rapid ventricular response Nausea & vomiting Qualifiers: Vomiting type: unspecified Vomiting Intractability: non-intractable Qualified Code(s): R11.2 - Nausea with vomiting, unspecified Disposition: Discharge to Home or Self Care Departure Forms: ED Discharge - Pt. Copy, Patient Portal Self Enrollment Instructions: DI for Chest Pain Referrals: [place] MD [Primary Care Provider] - 1-2 Weeks Prescriptions: Metoprolol Succinate [Metoprolol Succinate ER] 25 mg PO DAILY #30 tab Promethazine Tab [Phenergan Tablet] 25 mg PO .Q4H PRN #20 tab PRN Reason: Nausea Home Medications: Ambulatory Orders Citalopram Hydrobromide [Celexa] 20 mg PO DAILY 01/20/13 Nitroglycerin Patch 0.4 mg/Hr [Nitro-Dur PATCH 0.4 mg/hour] 0.4 mg TOP QD 02/29/16 Pantoprazole Tablet [Protonix] 40 mg PO BID 02/29/16 Albuterol Sulfate Nebs [Proventil Nebs] 2.5 mg NEB PRN PRN #30 vial 03/02/16 Montelukast [Singulair] 10 mg PO BEDTIME #30 tab 10/18/17 Amiodarone HCl 200 mg PO DAILY 05/10/19 Apixaban [Eliquis] 5 mg PO DAILY 05/10/19 Celecoxib [Celebrex] 200 mg PO DAILY 05/10/19 Citalopram Hydrobromide [CeleXA] 20 mg PO DAILY 05/10/19 Cyclobenzaprine Tab (ER Disp) [Flexeril Tab (ER Dispense)] 1 - 2 tablet PO BEDTIME 05/10/19 Diltiazem HCl Extended Release [Diltiazem HCl ER] 120 mg PO DAILY 05/10/19 Furosemide [Lasix] 40 mg PO DAILY PRN 05/10/19 Gabapentin 300 mg PO TID 05/10/19 Levothyroxine Sodium [Synthroid] 0.15 mg PO DAILY 05/10/19 Metoprolol Succinate [Metoprolol Succinate ER] 25 mg PO DAILY #30 tab 05/10/19 Pramipexole Dihydrochloride [Pramipexole Dihydrochlori] 2 mg PO BEDTIME 05/10/19 Prednisone 50 mg PO DAILY 05/10/19 Promethazine Tab [Phenergan Tablet] 25 mg PO .Q4H PRN #20 tab 05/10/19
[2019-05-10] MEDS ORDERED: ONDANSETRON INJ 4 MG/2 ML VIAL IV ONE (14:57)
--- NOTE | 2019-05-10 15:56 | RAD ---
EXAM: XR Chest, 1 View CLINICAL HISTORY: 73 years old and is Female; weakness and vomiting TECHNIQUE: Frontal view of the chest. COMPARISON: 10/18/2017 FINDINGS: Limitations: None. Lungs: Unremarkable. No consolidation. Pleural space: Unremarkable. No pneumothorax. Heart: Enlarged cardiac shadow unchanged. Mediastinum: Unremarkable. Bones/joints: Unremarkable. Upper abdomen: No free air under the diaphragm. IMPRESSION: No acute findings. Electronically signed by: Erma Vitale MD 05/10/2019 3:54 PM CDT
[2019-05-10] MEDS ORDERED: METOPROLOL TARTRATE INJ 5 MG/5 ML VIAL IV ONE (17:03)
[2019-05-10] MEDS ORDERED: PROMETHAZINE HCL INJ 12.5 MG in SODIUM CHLORIDE 0.9% 50ML 50 ML IVPB ONE (17:33)
[2019-05-10] MEDS ORDERED: SODIUM CHLORIDE 0.9% 50ML 50 ML ONE (17:34)
[2019-05-10] MEDS ORDERED: PROMETHAZINE HCL INJ 25 MG/ML VIAL ONE (17:34)
[2019-05-10 19:09] VITALS: BP 153/112; TEMP 97.5; O2SAT 95
== END 2019-05-10 19:05 | disposition home or self-care (01) ==
LOC: ER 13:46
DX: I48.92 Unspecified atrial flutter (principal); R00.0 Tachycardia, unspecified; R11.2 Nausea with vomiting, unspecified; R19.7 Diarrhea, unspecified; J44.9 Chronic obstructive pulmonary disease, unspecified; E78.00 Pure hypercholesterolemia, unspecified; I10 Essential (primary) hypertension; E07.9 Disorder of thyroid, unspecified; K21.9 Gastro-esophageal reflux disease without esophagitis; Z79.899 Other long term (current) drug therapy; Z87.891 Personal history of nicotine dependence
CPT/HCPCS: 71045; 80053; 81001; 83605; 83690; 83880; 84484; 85025; 87086; 93005; A4216; J2405; J2550; J7030